=== PATIENT | female | born 1975 | race Caucasian/White ===

== ENCOUNTER → 2018-06-04 | Outpatient (CLI) | payer BC ==
--- NOTE | 2018-06-05 02:27 | MR ---
EXAMINATION TYPE: MR cervical spine wo con DATE OF EXAM: 06/04/2018 COMPARISON: None HISTORY: Neck pain, stiffness, headaches x 10 years, hx of fall on ice TECHNIQUE: Multiplanar, multisequence images of the cervical spine were acquired. The cervical vertebra have normal alignment. There are small posterior disc bulges and herniation at C4-5 C5-6 C6-7 without significant impingement on the spinal cord. There is developmentally adequate spinal canal. Cervical spinal cord shows no edema. The brainstem appears intact. There is no compress ion fracture. Posterior elements are intact. I see no bony destructive process. The canal measures 8. 5 mm at C4-5. IMPRESSION: There are some spondylotic changes with posterior multilevel disc bulges and herniation. No significa nt spinal stenosis. The narrowing is most severe at C4-5 with 8.5 mm canal.
== END | disposition home or self-care (01) ==
LOC: RADMRIMAIN 20:09
PROVIDERS: ATTEND Family Medicine
DX: M48.02 Spinal stenosis, cervical region (principal); M50.121 Cervical disc disorder at C4-C5 level with radiculopathy; M47.22 Other spondylosis with radiculopathy, cervical region
CPT/HCPCS: 72141

== ENCOUNTER → 2019-06-21 | Outpatient (CLI) | payer BC ==
--- NOTE | 2019-06-21 08:58 | MR ---
EXAMINATION TYPE: MR thoracic spine wo con DATE OF EXAM: 06/21/2019 COMPARISON: CT chest 2013. HISTORY: Disc degeneration, thoracic, spondylosis, pain TECHNIQUE: Multiplanar, multisequence imaging of thoracic spine is performed without contrast FINDINGS: Coronal images redemonstrate levoconvex scoliosis centered in the upper to midthoracic spin e. Some motion artifact angulation is present. Spinal cord shows normal caliber and signal as it cour ses the thoracic spine. Vertebral body heights and disc space heights are satisfactory. Bone marrow signal intensity is maintained. Review of the axial images shows no significant spinal canal stenosis or neural foraminal narrowing a t any thoracic level. Visualized upper abdomen and thorax showed no suspicious abnormality. IMPRESSION: Persistent levoconvex scoliosis. No significant disc herniations are identified.
== END | disposition home or self-care (01) ==
LOC: RADMRIMAIN 07:24
PROVIDERS: ATTEND Family Medicine
DX: M41.84 Other forms of scoliosis, thoracic region (principal)
CPT/HCPCS: 72146

== ENCOUNTER 2019-11-25 12:38 | Emergency (ER) | payer BC, OTHER ==
[2019-11-25] MEDS ORDERED: SODIUM CHLORIDE 0.9% 1,000 ML IV ONE (12:55)
[2019-11-25 13:17] LABS: Basophils # (A) 0.1 k/uL (0-0.2); Basophils % (A) 1 %; Eosinophils # (A) 0.2 k/uL (0-0.7); Eosinophils % (A) 4 %; HCT 42.6 % (34.0-46.0); HGB 14.2 gm/dL (11.4-16.0); Lymphocytes # (A) 1.6 k/uL (1.0-4.8); Lymphocytes % (A) 29 %; MCH 31.7 pg (25.0-35.0); MCHC 33.3 g/dL (31.0-37.0); MCV 95.1 fL (80.0-100.0); Mean Platelet Volume 7.8; Monocytes # (A) 0.3 k/uL (0-1.0); Monocytes % (A) 5 %; Neutrophils # (A) 3.1 k/uL (1.3-7.7); Neutrophils % (A) 58 %; Platelet Count 307 k/uL (150-450); RBC 4.48 m/uL (3.80-5.40); RDW 12.6 % (11.5-15.5); WBC 5.4 k/uL (3.8-10.6)
[2019-11-25 13:32] LABS: ALT 53 U/L (4-34); AST 46 U/L (14-36); African American GFR (CKD) >90 (>60 ml/min/1.73 sqM); Albumin 4.7 g/dL (3.5-5.0); Alkaline Phosphatase 74 U/L (38-126); Anion Gap 8 mmol/L; Blood Urea Nitrogen 10 mg/dL (7-17); Calcium 9.6 mg/dL (8.4-10.2); Carbon Dioxide 24 mmol/L (22-30); Chloride 107 mmol/L (98-107); Glucose 100 mg/dL (74-99); Non-African American GFR(CKD) >90 (>60 ml/min/1.73 sqM); Potassium 4.4 mmol/L (3.5-5.1); Sodium 139 mmol/L (137-145); Total Bilirubin 0.5 mg/dL (0.2-1.3); Total Protein 7.7 g/dL (6.3-8.2)
--- NOTE | 2019-11-25 13:36 | CT ---
EXAMINATION TYPE: CT brain wo con DATE OF EXAM: 11/25/2019 COMPARISON: NONE HISTORY: Headache, high blood pressure CT DLP: 1090.4 mGycm. Automated Exposure Control for Dose Reduction was Utilized. TECHNIQUE: CT scan of the head is performed without contrast. FINDINGS: There is no acute intracranial hemorrhage, mass effect, or midline shift identified. No suspicious extra axial fluid collection. The ventricles and sulci are within normal limits in size. The globes are intact and the visualized sinuses are clear. IMPRESSION: No acute intracranial hemorrhage, mass effect, or midline shift is seen.
[2019-11-25 13:47] VITALS: RESP 18
[2019-11-25] MEDS ORDERED: hydrALAZINE HCL 20 MG/ML 1 ML VIAL IVP STA (13:50)
--- NOTE | 2019-11-25 13:59 | ED ---
Headache HPI - General Chief Complaint: Headache Stated Complaint: headache/high blood pressure Time Seen by Provider: 11/25/19 12:47 Source: patient, RN notes reviewed Mode of arrival: ambulatory Limitations: no limitations - History of Present Illness Initial Comments: 44-year-old female presents emergency Department from PCPs office with complaints of headache, hypertension. Patient states that she takes. Return, atenolol. She has not missed any doses no recent medication changes. She states that she had a blood vessel" in her left eye and was seen in urgent care blood pressure was elevated advise follow-up with PCP and has been persistently elevated 168/100. Denies any chest pain, shortness breath, dizziness, blurred vision or any focal weakness. Patient states that she's had this nagging headache which is not the worst headache of her life and states that she does not want take any medications for it. Patient has NO KNOWN DRUG ALLERGIES. Patient denies any other complaints this time. - Related Data Allergies Allergy/AdvReac Type Severity Reaction Status Date / Time No Known Allergies Allergy Verified 11/25/19 12:42 Review of Systems ROS Statement: Those systems with pertinent positive or pertinent negative responses have been documented in the HPI. ROS Other: All systems not noted in ROS Statement are negative. Past Medical History Past Medical History: Hypertension History of Any Multi-Drug Resistant Organisms: None Reported Additional Past Surgical History / Comment(s): breast augmentation Past Psychological History: Anxiety, Depression Smoking Status: Never smoker Past Alcohol Use History: Occasional Past Drug Use History: None Reported General Exam Limitations: no limitations General appearance: alert, in no apparent distress Head exam: Present: atraumatic, normocephalic, normal inspection Eye exam: Present: PERRL, EOMI, conjunctival injection (Left with mild subconjunctival hemorrhage). Absent: normal appearance, scleral icterus, periorbital swelling ENT exam: Present: normal exam, normal oropharynx, mucous membranes moist, TM's normal bilaterally Neck exam: Present: normal inspection, full ROM. Absent: tenderness, meningismu s, lymphadenopathy Respiratory exam: Present: normal lung sounds bilaterally. Absent: respiratory distress, wheezes, rales, rhonchi, stridor Cardiovascular Exam: Present: regular rate, normal rhythm, normal heart sounds. Absent: systolic murmur, diastolic murmur, rubs, gallop, clicks Neurological exam: Present: alert, oriented X3, CN II-XII intact, reflexes normal. Absent: motor sensory deficit Skin exam: Present: warm, dry, intact, normal color. Absent: rash Course Vital Signs 11/25/19 11/25/19 11/25/19 12:40 13:40 14:00 Temperature 97.8 F Pulse Rate 57 L 53 L 57 L Respiratory 20 18 18 Rate Blood Pressure 162/107 159/118 169/109 O2 Sat by Pulse 99 98 96 Oximetry 11/25/19 14:11 Temperature Pulse Rate 50 L Respiratory 18 Rate Blood Pressure 163/97 O2 Sat by Pulse 98 Oximetry Medical Decision Making - Medical Decision Making Patient had complete workup including CT EKG, labs which are essentially unremarkable. Patient was offered several times medication for headache. She declines. Patient was given hydralazine 10 mg for blood pressure blood pressure has improved. Patient continues to be very anxious and she admits that she has history of anxiety. Patient does have a follow-up appointment with her PCP she is advised to keep a daily log of her blood pressure and to return for any worsening change in symptoms. - Lab Data Result diagrams: 11/25/19 13:00 11/25/19 13:00 Lab Results 11/25/19 11/25/19 11/25/19 Range/Units 13:00 13:00 13:00 WBC 5.4 (3.8-10.6) k/uL RBC 4.48 (3.80-5.40) m/uL Hgb 14.2 (11.4-16.0) gm/dL Hct 42.6 (34.0-46.0) % MCV 95.1 (80.0-100.0) fL MCH 31.7 (25.0-35.0) pg MCHC 33.3 (31.0-37.0) g/dL RDW 12.6 (11.5-15.5) % Plt Count 307 (150-450) k/uL Neutrophils % 58 % Lymphocytes % 29 % Monocytes % 5 % Eosinophils % 4 % Basophils % 1 % Neutrophils # 3.1 (1.3-7.7) k/uL Lymphocytes # 1.6 (1.0-4.8) k/uL Monocytes # 0.3 (0-1.0) k/uL Eosinophils # 0.2 (0-0.7) k/uL Basophils # 0.1 (0-0.2) k/uL Sodium 139 (137-145) mmol/L Potassium 4.4 (3.5-5.1) mmol/L Chloride 107 (98-107) mmol/L Carbon Dioxide 24 (22-30) mmol/L Anion Gap 8 mmol/L BUN 10 (7-17) mg/dL Creatinine 0.53 (0.52-1.04) mg/dL Est GFR (CKD-EPI)AfAm >90 (>60 ml/min/1.73 sqM) Est GFR (CKD-EPI)NonAf >90 (>60 ml/min/1.73 sqM) Glucose 100 H (74-99) mg/dL Calcium 9.6 (8.4-10.2) mg/dL Total Bilirubin 0.5 (0.2-1.3) mg/dL AST 46 H (14-36) U/L ALT 53 H (4-34) U/L Alkaline Phosphatase 74 (38-126) U/L Troponin I <0.012 (0.000-0.034) ng/mL Total Protein 7.7 (6.3-8.2) g/dL Albumin 4.7 (3.5-5.0) g/dL Disposition Clinical Impression: Subconjunctival hemorrhage, Headache, Hypertension Disposition: HOME SELF-CARE Condition: Stable Instructions (If sedation given, give patient instructions): Hypertension (ED) Additional Instructions: Please return to the Emergency Department if symptoms worsen or any other concerns. Is patient prescribed a controlled substance at d/c from ED?: No Referrals: Evan Mello DO [Primary Care Provider] - 1-2 days Time of Disposition: 14:42
[2019-11-25 14:55] VITALS: BP 176/94; PULSE 56; TEMP 98
== END 2019-11-25 14:54 | disposition home or self-care (01) ==
LOC: EC 12:38
DX: H11.32 Conjunctival hemorrhage, left eye (principal); I10 Essential (primary) hypertension
CPT/HCPCS: 36415; 93005; 80053; 84484; 85025; 70450; 99284; 96374; 96361; J0360

== ENCOUNTER → 2020-08-23 | Outpatient (CLI) | payer OTHER ==
--- NOTE | 2020-08-24 05:27 | MR ---
EXAMINATION TYPE: MR cervical spine wo con DATE OF EXAM: 08/23/2020 COMPARISON: 06/04/2018 HISTORY: Neck pain Cervical vertebra have normal alignment. Disc spaces are fairly normal. There is small posterior disc bulging at C4-5 C5-6 and C6-7. There is developmentally adequate spinal canal. There is no spinal st enosis. Spinal canal measures 8.5 mm at C5-6 which is the narrowest point. The skull base appears int act. Brainstem is intact. I see no focal bone destruction. There are mild anterior disc herniations a t C5-6 and C6-7. IMPRESSION: Mild multilevel disc bulging as above without significant spinal stenosis. No fracture. No significan t change compared to old exam.
== END | disposition home or self-care (01) ==
LOC: RADMRIMAIN 10:53
PROVIDERS: ATTEND Orthopaedic Surgery
DX: M50.221 Other cervical disc displacement at C4-C5 level (principal)
CPT/HCPCS: 72141

== ENCOUNTER → 2022-08-07 | Outpatient (CLI) | payer OTHER ==
--- NOTE | 2022-08-08 20:13 | MM ---
Reason for Exam: Hx of breast augmentation, asymptomatic. Baseline mammogram. Patient History: Last menstrual period: 08/05/2022 Risk Values: Viky 5 year model risk: 0.5%. NCI Lifetime model risk: 6.4%. Prior Study Comparison: Patient's first Mammogram. Tissue Density: The breast tissue is heterogeneously dense. This may lower the sensitivity of mammography. Findings: Analyzed By CAD. Retropectoral saline implant on the left. No implant seen on the right suggesting previous rupture. Possible global asymmetry upper outer quadrant right breast for which additional spot compression is recommended. On the left superiorly and posteriorly, there is nodularity for which further evaluation is recommended. Overall Assessment: Incomplete: need additional imaging evaluation, BI-RAD 0 Management: Special View Mammogram of both breasts. Diagnostic Breast Ultrasound of both breasts. 1. Additional views right breast include spot 3-D CT and 3-D ML views. 2. Additional views left breast to include spot 3 MLO, 3-D XCCL, and 3 lateral views. 3. Targeted ultrasound right breast lateral half 6:00 to 12:00. Targeted ultrasound left breast upper outer quadrant and axilla. Electronically signed and approved by: Fei Melendez M.D. Radiologist
== END | disposition home or self-care (01) ==
LOC: RADMAMWWP 09:43
PROVIDERS: ATTEND Family Medicine
DX: Z12.31 Encounter for screening mammogram for malignant neoplasm of breast (principal)
CPT/HCPCS: 77063; 77067

== ENCOUNTER → 2022-08-15 | Outpatient (CLI) | payer OTHER ==
--- NOTE | 2022-08-15 10:40 | USB ---
Reason for Exam: Additional evaluation requested from abnormal screening. Risk Values: Viky 5 year model risk: 0.5%. NCI Lifetime model risk: 6.4%. Technique: Method: Targeted. Prior Study Comparison: 08/07/2022 Bilateral MG 3D screen mammo imp/cad., [facility]. Findings: The upper outer quadrant of both breasts, the axilla of both breasts and the retroareolar of both breasts were scanned. Limited bilateral breast ultrasound shows a 5 x 6 x 4 mm simple appearing thin-walled cyst at 10:00 position 4 cm distance from nipple and prominent but benign-appearing lymph node in the right axilla. No visualized implant. Left breast ultrasound shows partial visualization of implant without concerning solid or cystic mass.Limited bilateral breast ultrasound shows a 5 x 6 x 4 mm simple appearing thin-walled cyst at 10:00 position 4 cm distance from nipple and prominent but benign-appearing lymph node in the right axilla. No visualized implant. Left breast ultrasound shows partial visualization of implant without concerning solid or cystic mass. Area of concern on mammogram favors benign lymph node based on location. Overall Assessment: Benign, BI-RAD 2 Management: Screening Mammogram of both breasts in 1 year. Return to routine follow-up. 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 Results were given to the patient verbally at the time of exam. Electronically signed and approved by: Rufino Hercules M.D.
== END | disposition home or self-care (01) ==
LOC: RADMAMWWP 09:38
PROVIDERS: ATTEND Family Medicine
DX: R92.8 Other abnormal and inconclusive findings on diagnostic imaging of breast (principal)